=== PATIENT | female | born 1950 | race Caucasian/White ===

== ENCOUNTER → 2017-10-15 | Outpatient (CLI) | payer BC ==
[~2017-10-15] MED LIST: ASPI81TA50 PO; BUPR100T6 PO; LEVO175T2 PO; LORA1TAB PO; PANT40TA5 PO; PROC10TA PO; ZOLP10TA PO; [UNRECOGNIZED DRUG - OTHER] PO
[2017-10-15 09:49] LABS: INTERNATIONAL NORMALIZED RATIO 0.99 (0.93-1.1); PROTHROMBIN TIME 10.3 Seconds (9.6-11.5)
[2017-10-15 09:51] LABS: BASOPHILS # (AUTO) 0.02 x10^3/uL (0-0.1); BASOPHILS % (AUTO) 0 % (0-1); EOSINOPHILS # (AUTO) 0.04 x10^3/uL (0-0.4); EOSINOPHILS % (AUTO) 1 % (1-7); LYMPHOCYTES % (AUTO) 20 % (22-44); MD NO; MEAN CORPUSCULAR HEMOGLOBIN 35.9 pg (27.0-34.8); MEAN CORPUSCULAR HGB CONC 35.1 g/dL (32.4-35.8); MEAN CORPUSCULAR VOLUME 102.2 fL (80-100); MEAN PLATELET VOLUME 6.6 fL (7.4-10.4); MONOCYTES # (AUTO) 0.68 x10^3/uL (0.2-0.8); MONOCYTES % (AUTO) 9 % (2-9); NEUTROPHILS # (AUTO) 5.58 x10^3/uL (1.8-6.8); NEUTROPHILS % (AUTO) 71 % (42-75); PLATELET COUNT 158 x10^3/uL (130-400); RED BLOOD COUNT 3.74 x10^6/uL (3.82-5.3)
[2017-10-15 09:52] LABS: ALANINE AMINOTRANSFERASE 22 U/L (12-78); ALBUMIN 3.8 g/dL (3.4-5.0); ANION GAP 5 mmol/L (5-15); CALCIUM 8.9 mg/dL (8.5-10.1); CHLORIDE 108 mmol/L (98-107); CREATININE 0.94 mg/dL (0.55-1.02)
[2017-10-15 09:54] LABS: ALKALINE PHOSPHATASE 110 U/L (45-117); BILIRUBIN,TOTAL 0.6 mg/dL (0.2-1.0); TOTAL PROTEIN 7.3 g/dL (6.4-8.2)
== END | disposition home or self-care (01) ==
LOC: STAR 08:36
PROVIDERS: ATTEND Specialist
DX: Z01.818 Encounter for other preprocedural examination (principal); J98.4 Other disorders of lung
CPT/HCPCS: 36415; 71046; 80053; 85025; 85610; 85730; 93005

== ENCOUNTER 2017-10-26 07:33 | Day surgery (SDC) | payer BC ==
[~2017-10-26] VITALS: Ht 165.1 cm; Wt 90.7 kg
[2017-10-26] MEDS ORDERED: LACTATED RINGERS 1,000 ML IV SCH (08:02)
[2017-10-26] MEDS ORDERED: EPINEPHRINE 1 MG/ML, 1ML ONE (08:09)
[2017-10-26] MEDS ORDERED: BUPIVACAINE/PF 0.25% ONE (08:09)
[2017-10-26 08:39] VITALS: BP 118/80
[2017-10-26] MEDS ORDERED: FENTANYL PF 100 MCG/2ML ONE ×4 (08:40→10:46)
[2017-10-26] MEDS ORDERED: MIDAZOLAM 1 MG/ML, 2ML ONE (08:40)
[2017-10-26] MEDS ORDERED: PROPOFOL 10 MG/ML, 20ML ONE (08:40)
[2017-10-26] MEDS ORDERED: DEXAMETHASONE 4 MG/ML, 1ML ONE (08:41)
[2017-10-26] MEDS ORDERED: ONDANSETRON 2MG/ML, 2ML ONE (08:41)
[2017-10-26] MEDS ORDERED: ROCURONIUM 10MG/ML,5ML ONE (08:41)
[2017-10-26] MEDS ORDERED: CEFOTETAN PMX 2GM/50ML 50 ML ONE (08:41)
[2017-10-26] MEDS ORDERED: ACETAMINOPHEN 500 MG TABLET ONE (08:45)
[2017-10-26] MEDS ORDERED: OXYcodone IR 5MG TABLET ONE (08:45)
[2017-10-26] MEDS ORDERED: GABAPENTIN 300 MG CAPSULE ONE (08:45)
[2017-10-26] MEDS ORDERED: ACETAMINOPHEN 500 MG TABLET PO ONE (09:00)
[2017-10-26] MEDS ORDERED: GABAPENTIN 300 MG CAPSULE PO ONE (09:00)
[2017-10-26] MEDS ORDERED: OXYcodone IR 5MG TABLET PO ONE (09:00)
[2017-10-26] MEDS ORDERED: BUPIVACAINE/PF 0.5% ONE (09:55)
[2017-10-26] MEDS ORDERED: NEOSTIGMINE 1 MG/ML, 10ML ONE (09:58)
[2017-10-26] MEDS ORDERED: GLYCOPYRROLATE 0.4 MG/2 ML, 2ML ONE (09:58)
[2017-10-26] MEDS ORDERED: ONDANSETRON 2MG/ML, 2ML IVPush PRN (10:00)
[2017-10-26] MEDS ORDERED: DIAZEPAM 5 MG/ML, 2ML IVPush PRN (10:00)
[2017-10-26] MEDS ORDERED: LABETALOL 5MG/ML, 20ML IV PRN (10:00)
[2017-10-26] MEDS ORDERED: MEPERIDINE/PF 25MG/0.5ML IVPush PRN (10:00)
[2017-10-26] MEDS ORDERED: METOPROLOL 1 MG/ML, 5ML IV PRN (10:00)
[2017-10-26] MEDS ORDERED: EPHEDRINE 50 MG/ML, 1ML IVPush PRN (10:00)
[2017-10-26] MEDS ORDERED: hydrALAzine 20 MG/ML, 1ML IV PRN (10:00)
[2017-10-26] MEDS ORDERED: PROMETHAZINE 25 MG/ML, 1ML IV PRN (10:00)
[2017-10-26] MEDS ORDERED: ALBUTEROL SULFATE 2.5 MG/3 ML NPPB PRN (10:00)
[2017-10-26] MEDS ORDERED: OXYcodone 5 MG/5 ML ORAL.SOL UDC ONE (10:15)
[2017-10-26] MEDS: FENTANYL PF 100 MCG/2ML IV PRN ×4 (10:21→11:00)
[2017-10-26] MEDS: OXYcodone 5 MG/5 ML ORAL.SOL UDC PO PRN ×2 (10:28→12:04)
[2017-10-26] MEDS: morphine SULFATE 10 MG/ML, 1ML IV PRN ×5 (10:35→11:15)
[2017-10-26] MEDS ORDERED: MORPHINE SULFATE 4 MG/ML, 1ML ONE ×2 (10:36→10:46)
[2017-10-26] MEDS ORDERED: KETOROLAC 30 MG/1 ML ONE (10:44)
[2017-10-26] MEDS ORDERED: KETOROLAC 30 MG/1 ML IVPush ONE (11:00)
[2017-10-26] MEDS ORDERED: OXYcodone/APAP 7.5/325MG TABLET ONE (14:09)
[2017-10-26] MEDS ORDERED: OXYcodone/APAP 7.5/325MG TABLET PO PRN (14:30)
== END 2017-10-26 15:50 | disposition home or self-care (01) ==
LOC: OUT 07:33
PROVIDERS: ATTEND Specialist
DX: K43.2 Incisional hernia without obstruction or gangrene (principal); C56.9 Malignant neoplasm of unspecified ovary; Z88.8 Allergy status to other drugs, medicaments and biological substances; K21.9 Gastro-esophageal reflux disease without esophagitis; E03.9 Hypothyroidism, unspecified; Z86.19 Personal history of other infectious and parasitic diseases; J45.909 Unspecified asthma, uncomplicated; Z90.49 Acquired absence of other specified parts of digestive tract; Z98.890 Other specified postprocedural states; Z90.710 Acquired absence of both cervix and uterus; Z80.3 Family history of malignant neoplasm of breast; Z72.89 Other problems related to lifestyle
CPT/HCPCS: 36415; 49560; 86850; 86900; 86923; 88302; C1765; J0171; J1100; J1885; J2250; J2270; J2405; J2704; J2710; J3010; J3490; J7120; S0074